=== PATIENT | female | born 1965 | race Caucasian/White ===

== ENCOUNTER 2020-11-19 17:57 | Inpatient (IN) | payer OTHER ==
[~2020-11-19] VITALS: Ht 165.1 cm; Wt 78.5 kg
[2020-11-19] MEDS ORDERED: aspirin 81mg tab.chew PO ONE (18:20)
--- NOTE | 2020-11-19 18:41 | NUR ---
Patient placed in bed 17. Awaiting main ER bed. CXR and EKG done. is at bedside.
[2020-11-19] MEDS ORDERED: iohexol 350MG/ML 100ml bottle IV ONE (18:57)
[2020-11-19 19:47] LABS: BASOPHILS % (AUTO) 0.5 % (0-1); EOSINOPHILS # (AUTO) 0.1 X10'3 (0-0.9); EOSINOPHILS % (AUTO) 0.8 % (0-6); HEMATOCRIT 38.7 % (35.0-45.0); HEMOGLOBIN 13.3 g/dl (12.0-16.0); LYMPHOCYTES # (AUTO) 1.5 X10'3 (1.1-4.8); LYMPHOCYTES % (AUTO) 18.4 % (21-51); MEAN CORPUSCULAR HEMOGLOBIN 40.4 PG (27.0-31.0); MEAN CORPUSCULAR HGB CONC 34.4 g/dL (33.0-36.5); MEAN CORPUSCULAR VOLUME 117.4 FL (78-98); MEAN PLATELET VOLUME 8.4 FL (7.4-10.4); MONOCYTES # (AUTO) 0.6 X10'3 (0-0.9); MONOCYTES % (AUTO) 6.7 % (2-12); NEUTROPHILS # (AUTO) 6.1 X10'3 (1.8-7.7); NEUTROPHILS % (AUTO) 73.6 % (42-75); PLATELET COUNT 226 X10'3 (140-440); RED CELL DISTRIBUTION WIDTH 18.2 % (11.5-14.5); WHITE BLOOD COUNT 8.3 X10'3 (4.5-11.0)
[2020-11-19 19:49] LABS: D-DIMER 0.36 MG/L FEU (0-0.50); PARTIAL THROMBOPLASTIN TIME 22 SECONDS (22-32)
[2020-11-19 19:58] LABS: ALANINE AMINOTRANSFERASE 61 U/L (12-78); ALBUMIN 4.3 G/DL (3.4-5.0); ALBUMIN/GLOBULIN RATIO 1.1 (1.1-1.5); ALKALINE PHOSPHATASE 93 IU/L (46-116); ANION GAP 17 (8-16); ASPARTATE AMINO TRANSFERASE 91 U/L (10-37); BILIRUBIN,TOTAL 1.4 MG/DL (0.1-1.0); BLOOD UREA NITROGEN 20 MG/DL (7-18); BUN/CREATININE RATIO 12.9 (6.6-38.0); CALCIUM 9.1 MG/DL (8.5-10.1); CHLORIDE 98 MMOL/L (99-107); CREATININE 1.55 MG/DL (0.40-0.90); GLUCOSE 140 MG/DL (70-104); MAGNESIUM 1.1 MG/DL (1.5-2.4); SODIUM 140 MMOL/L (135-145); TOTAL CARBON DIOXIDE 24.8 MMOL/L (24-32); TOTAL PROTEIN 8.2 G/DL (6.4-8.2); eGFR 35 ML/MIN
[2020-11-19 20:05] LABS: POTASSIUM 2.5 MMOL/L (3.5-5.1)
[2020-11-19] MEDS ORDERED: labetalol 20mg/4ml (5mg/ml) syringe IV ONE (20:15)
[2020-11-19] MEDS ORDERED: potassium Cl 20 mEq SR tablet PO ONE (20:25)
[2020-11-19 20:40] LABS: PLATELET ESTIMATE NORMAL
[2020-11-19 20:41] LABS: ANISOCYTOSIS 2+; STOMATOCYTES 1+
[2020-11-19] MEDS: potassium CL 10mEq/100ml bag 100 ML IV SCH (21:05)
--- NOTE | 2020-11-19 21:26 | NUR ---
Patient resting comfortably on gurney.
[2020-11-19] MEDS: magnesium 2GM in 50ml NS 50 ML IV SCH (22:14)
[2020-11-20] MEDS ORDERED: cyclobenzaprine 10mg tablet PO ONE (00:25)
[2020-11-20] MEDS: magnesium 2GM in 50ml NS 50 ML IV SCH (00:28)
[2020-11-20] MEDS ORDERED: ondansetron/PF 4mg/2ml inj IV PRN (02:00)
[2020-11-20] MEDS ORDERED: mag hydrox/Alum hydrox/simeth 30ml oral suspension PO PRN (02:00)
[2020-11-20] MEDS ORDERED: potassium Cl 40MEQ/1/2NS 520ml 520 ML IV PRN ×2 (02:00)
[2020-11-20] MEDS ORDERED: PERFLUTREN PROTEIN-A MICROSPHR (Optison) 0.22 MG/ML 3ML VIAL IV ONE (02:00)
[2020-11-20] MEDS ORDERED: magnesium hydroxide 30ml (MOM) UD suspension PO PRN (02:00)
[2020-11-20] MEDS ORDERED: potassium Cl 20 mEq SR tablet PO PRN (02:00)
[2020-11-20] MEDS ORDERED: thiamine 100mg tablet PO ONE (02:00)
[2020-11-20] MEDS ORDERED: acetaminophen 325mg tablet PO PRN (02:00)
[2020-11-20] MEDS ORDERED: magnesium 4gm in 100ml NS 100 ML IV PRN (02:15)
[2020-11-20] MEDS ORDERED: magnesium Cl slow-release 64mg tablet PO PRN (02:15)
[2020-11-20] MEDS: potassium CL 10mEq/100ml bag 100 ML IV SCH (02:25)
[2020-11-20 02:43] LABS: MAGNESIUM 1.9 MG/DL (1.5-2.4)
[2020-11-20 02:48] LABS: POTASSIUM 2.7 MMOL/L (3.5-5.1)
--- NOTE | 2020-11-20 04:29 | NUR ---
Patient in room ED 7. I have received report from Fina ALDRICH and had the opportunity to ask questions and assume patient care.
[2020-11-20] MEDS: potassium Cl 20 mEq SR tablet PO PRN ×2 (04:56→10:28)
[2020-11-20 04:59] VITALS: BP 159/93
[2020-11-20 06:00] VITALS: BP 168/77
--- NOTE | 2020-11-20 06:12 | NUR ---
Problems reprioritized. Patient report given, questions answered & plan of care reviewed with Anna ALDRICH.
[2020-11-20] MEDS: heparin, porcine 5000 units/ml vial SQ SCH ×2 (07:31→20:26)
[2020-11-20] MEDS: levoTHYROXINE 25mcg tablet PO SCH (07:31)
[2020-11-20] MEDS: K and/or MAG REPLACEMENT MC SCH ×4 (08:00→20:00)
[2020-11-20 10:08] LABS: BASOPHILS % (AUTO) 0.7 % (0-1); EOSINOPHILS # (AUTO) 0.1 X10'3 (0-0.9); EOSINOPHILS % (AUTO) 2.2 % (0-6); HEMATOCRIT 31.4 % (35.0-45.0); HEMOGLOBIN 10.8 g/dl (12.0-16.0); LYMPHOCYTES # (AUTO) 1.2 X10'3 (1.1-4.8); LYMPHOCYTES % (AUTO) 25.7 % (21-51); MEAN CORPUSCULAR HEMOGLOBIN 40.9 PG (27.0-31.0); MEAN CORPUSCULAR HGB CONC 34.5 g/dL (33.0-36.5); MEAN CORPUSCULAR VOLUME 118.3 FL (78-98); MEAN PLATELET VOLUME 8.1 FL (7.4-10.4); MONOCYTES # (AUTO) 0.4 X10'3 (0-0.9); NEUTROPHILS # (AUTO) 2.9 X10'3 (1.8-7.7); NEUTROPHILS % (AUTO) 63.4 % (42-75); PLATELET COUNT 163 X10'3 (140-440); RED BLOOD COUNT 2.65 X10'6 (4.20-5.60); RED CELL DISTRIBUTION WIDTH 17.8 % (11.5-14.5); WHITE BLOOD COUNT 4.7 X10'3 (4.5-11.0)
[2020-11-20 10:25] LABS: ALANINE AMINOTRANSFERASE 59 U/L (12-78); ALBUMIN 3.3 G/DL (3.4-5.0); ALBUMIN/GLOBULIN RATIO 1.1 (1.1-1.5); ANION GAP 11 (8-16); ASPARTATE AMINO TRANSFERASE 104 U/L (10-37); BLOOD UREA NITROGEN 16 MG/DL (7-18); BUN/CREATININE RATIO 16.3 (6.6-38.0); CALCIUM 7.8 MG/DL (8.5-10.1); CHLORIDE 105 MMOL/L (99-107); CREATININE 0.98 MG/DL (0.40-0.90); GLUCOSE 179 MG/DL (70-104); SODIUM 140 MMOL/L (135-145); TOTAL CARBON DIOXIDE 24.3 MMOL/L (24-32); TOTAL PROTEIN 6.4 G/DL (6.4-8.2); eGFR 59 ML/MIN
[2020-11-20 10:28] LABS: POTASSIUM 2.9 MMOL/L (3.5-5.1)
[2020-11-20 11:00] VITALS: BP 172/85
[2020-11-20] MEDS ORDERED: QUET100T33 PO (11:07)
[2020-11-20] MEDS ORDERED: ESTR-8 PO (11:07)
[2020-11-20] MEDS ORDERED: LORA-269 PO (11:07)
[2020-11-20] MEDS ORDERED: ERGO500054 PO (11:07)
[2020-11-20] MEDS ORDERED: FLUT1BLS9 INH (11:07)
[2020-11-20] MEDS ORDERED: PROP40TA72 PO (11:07)
[2020-11-20] MEDS ORDERED: ESCI20TA39 PO (11:07)
[2020-11-20] MEDS ORDERED: CYCL-1 PO (11:07)
[2020-11-20 11:16] LABS: ALKALINE PHOSPHATASE 73 IU/L (46-116)
[2020-11-20 11:21] LABS: ANISOCYTOSIS 1+; PLATELET ESTIMATE NORMAL
--- NOTE | 2020-11-20 11:50 | NUR ---
Malnutrition consult: Pt reports 2-13 lb wt loss with decreased appetite per malnutrition risk screen with RN. No wt hx in EMR however current scaled weight is 138% IBW. Pt on a heart healthy diet documented with 100% PO intake first meal meeting estimated nutrient needs. Pt with no documented decrease in muscle strength or edema. Pt currently lacks a minimum of two criteria for malnutrition. Will continue to follow. Addendum: 11/20/20 at [address] Amended: Links added.
[2020-11-20] MEDS: metoprolol tartrate 25mg tablet PO SCH ×2 (11:59→20:26)
[2020-11-20] MEDS ORDERED: LORazepam 2 mg/ml vial IV PRN (12:20)
[2020-11-20] MEDS ORDERED: thiamine inj. 100 MG in normal saline 100ml IV soln 100 ML IV ONE (12:20)
[2020-11-20] MEDS ORDERED: haloperidol lactate 5mg/ml inj IM PRN (12:20)
[2020-11-20] MEDS ORDERED: haloperidol 5mg tablet PO PRN (12:20)
[2020-11-20] MEDS ORDERED: LORazepam 1 MG tablet PO PRN ×2 (12:20→21:25)
[2020-11-20 15:00] VITALS: BP 150/94
[2020-11-20] MEDS: naltrexone 50mg tablet PO SCH (15:07)
[2020-11-20 19:00] VITALS: BP 163/84
[2020-11-20] MEDS ORDERED: QUEtiapine 25mg tablet PO SCH (21:00)
[2020-11-20 23:00] VITALS: BP 174/90
[2020-11-21] MEDS: albuterol 2.5 MG/3 ML nebule NEB SCH ×2 (02:41→09:26)
[2020-11-21 03:00] VITALS: BP 174/90
[2020-11-21 06:00] VITALS: BP 188/112
[2020-11-21 07:09] LABS: BASOPHILS % (AUTO) 0.9 % (0-1); EOSINOPHILS # (AUTO) 0.1 X10'3 (0-0.9); EOSINOPHILS % (AUTO) 2.3 % (0-6); HEMOGLOBIN 11.3 g/dl (12.0-16.0); LYMPHOCYTES # (AUTO) 1.3 X10'3 (1.1-4.8); LYMPHOCYTES % (AUTO) 32.9 % (21-51); MEAN CORPUSCULAR HEMOGLOBIN 40.8 PG (27.0-31.0); MEAN CORPUSCULAR HGB CONC 34.2 g/dL (33.0-36.5); MEAN CORPUSCULAR VOLUME 119.3 FL (78-98); MEAN PLATELET VOLUME 8.5 FL (7.4-10.4); MONOCYTES # (AUTO) 0.4 X10'3 (0-0.9); MONOCYTES % (AUTO) 10.1 % (2-12); NEUTROPHILS # (AUTO) 2.1 X10'3 (1.8-7.7); NEUTROPHILS % (AUTO) 53.8 % (42-75); PLATELET COUNT 178 X10'3 (140-440); RED BLOOD COUNT 2.77 X10'6 (4.20-5.60); RED CELL DISTRIBUTION WIDTH 17.9 % (11.5-14.5)
[2020-11-21] MEDS: naltrexone 50mg tablet PO SCH (07:24)
[2020-11-21] MEDS: heparin, porcine 5000 units/ml vial SQ SCH (07:24)
[2020-11-21] MEDS: metoprolol tartrate 25mg tablet PO SCH (07:24)
[2020-11-21] MEDS ORDERED: FLUTICASONE PROPION INH SCH (08:00)
[2020-11-21] MEDS ORDERED: thiamine 100mg tablet PO SCH (08:00)
[2020-11-21] MEDS: K and/or MAG REPLACEMENT MC SCH ×2 (08:00)
[2020-11-21] MEDS ORDERED: ESCITALOPRAM OXALATE 5 MG TABLET PO SCH (08:00)
[2020-11-21] MEDS ORDERED: PROPRANOLOL HCL PO SCH (08:00)
[2020-11-21] MEDS ORDERED: folic acid 1mg tablet PO SCH (08:00)
[2020-11-21] MEDS ORDERED: SALMETEROL INH SCH (08:00)
[2020-11-21] MEDS ORDERED: multivitamins, therapeutics tablet PO SCH (08:00)
[2020-11-21 08:05] LABS: ALANINE AMINOTRANSFERASE 66 U/L (12-78); ALBUMIN 3.3 G/DL (3.4-5.0); ALKALINE PHOSPHATASE 67 IU/L (46-116); ANION GAP 11 (8-16); ASPARTATE AMINO TRANSFERASE 105 U/L (10-37); BILIRUBIN,TOTAL 0.6 MG/DL (0.1-1.0); BLOOD UREA NITROGEN 12 MG/DL (7-18); BUN/CREATININE RATIO 16.2 (6.6-38.0); CALCIUM 8.3 MG/DL (8.5-10.1); CHLORIDE 107 MMOL/L (99-107); CREATININE 0.74 MG/DL (0.40-0.90); GLUCOSE 127 MG/DL (70-104); MAGNESIUM 2.2 MG/DL (1.5-2.4); POTASSIUM 3.6 MMOL/L (3.5-5.1); SODIUM 141 MMOL/L (135-145); TOTAL PROTEIN 6.6 G/DL (6.4-8.2); eGFR 82 ML/MIN
[2020-11-21] MEDS ORDERED: budesonide 0.5mg/2ml UD nebule IH SCH (09:00)
[2020-11-21 10:24] LABS: ANISOCYTOSIS 1+; PLATELET ESTIMATE NORMAL
[2020-11-21 10:25] LABS: POLYCHROMASIA 1+; TEAR DROP CELLS FEW
[2020-11-21 10:26] LABS: ELLIPTOCYTES FEW; SCHISTOCYTES FEW
[2020-11-21 11:30] VITALS: BP 149/82
[2020-11-21] MEDS ORDERED: NALT50TA PO (11:47)
[2020-11-21] MEDS ORDERED: FOLI0.8C PO (11:47)
[2020-11-21] MEDS ORDERED: MULT-25 PO (11:47)
[2020-11-21] MEDS ORDERED: LEVO25TA7 PO (11:47)
[2020-11-21] MEDS ORDERED: thiamine tablet PO (11:47)
[2020-11-21] MEDS ORDERED: LORA-269 PO (11:47)
[2020-11-21] MEDS ORDERED: ATI1T PO (11:50)
[2020-11-21] MEDS ORDERED: PANT-47 PO (11:51)
== END 2020-11-21 13:05 | disposition home or self-care (01) | DRG 392 ==
LOC: ER 17:58 → ED HOLD 11-20 01:56 → PCU 3S 11-20 05:27
PROVIDERS: ADMIT Internal Medicine; ATTEND Family Medicine
DX: K29.20 Alcoholic gastritis without bleeding (principal); N17.9 Acute kidney failure, unspecified; F10.20 Alcohol dependence, uncomplicated; E87.6 Hypokalemia; F41.9 Anxiety disorder, unspecified; K59.00 Constipation, unspecified; R00.0 Tachycardia, unspecified; D64.9 Anemia, unspecified; E03.9 Hypothyroidism, unspecified; F32.9 Major depressive disorder, single episode, unspecified
CPT/HCPCS: 36415; 71045; 71250; 80053; 83735; 83880; 84132; 84443; 84484; 85008; 85025; 85379; 85610; 85730; 87081; 93005; 93306; 94640; 94760; 96365; 96366; 96375; 99285; G0378; J1644; J3411; J3475; J3480; J3490; J7626; Q9967